=== PATIENT | male | born 1995 | race Two or more races ===

== ENCOUNTER 2017-05-10 21:58 | Emergency (ER) | payer SELFPAY ==
[~2017-05-10] VITALS: Ht 172.7 cm; Wt 59.0 kg
[2017-05-10 22:44] VITALS: BP 136/87
[2017-05-10] MEDS ORDERED: HYDROcodone/APAP 7.5/325MG 1 TAB TABLET ONE (23:04)
[2017-05-10] MEDS ORDERED: HYDR-971 PO (23:10)
--- NOTE | 2017-05-10 23:10 | PHYS DOC ---
Past Medical History Past Medical History: No Pertinent History Past Surgical History: No Surgical History Alcohol Use: None Drug Use: None Adult General Chief Complaint Chief Complaint: WRIST PAIN HPI HPI Patient is a 22 year old male presents to the emergency department stating that he had fallen 6 days ago when he was coming down the stairs after taking a shower. He's felt on a outstretched wrist. He has been taken Tylenol and ibuprofen for pain and discomfort with minimal relief. Patient does have significant swelling noted. He does have full range of motion of his fingers. Patient has 2+ peripheral pulses Refill brisk less than 2 seconds. Patient is right-hand dominant. Review of Systems Review of Systems Constitutional: Denies fever or chills [] Eyes: Denies change in visual acuity, redness, or eye pain [] HENT: Denies nasal congestion or sore throat [] Respiratory: Denies cough or shortness of breath [] Cardiovascular: No additional information not addressed in HPI [] GI: Denies abdominal pain, nausea, vomiting, bloody stools or diarrhea [] : Denies dysuria or hematuria [] Musculoskeletal: Denies back pain. Right wrist pain Integument: Denies rash or skin lesions [] Neurologic: Denies headache, focal weakness or sensory changes [] Endocrine: Denies polyuria or polydipsia [] Current Medications Current Medications Current Medications Medications (Trade) Dose Ordered Sig/Conrad Start Time Stop Time Status Last Admin Dose Admin Acetaminophen/ Hydrocodone Bitart (Lortab 5/325) 1 tab 1X ONCE 05/10/17 23:00 05/10/17 23:01 UNV Allergies Allergies Allergies Coded Allergies Type Severity Reaction Last Updated Verified No Known Drug Allergies 05/10/17 No Physical Exam Physical Exam Constitutional: Well developed, well nourished, no acute distress, non-toxic appearance. [] HENT: Normocephalic, atraumatic, bilateral external ears normal, oropharynx moist, no oral exudates, nose normal. [] Eyes: PERRLA, EOMI, conjunctiva normal, no discharge. [] Neck: Normal range of motion, no tenderness, supple, no stridor. [] Cardiovascular:Heart rate regular rhythm Lungs & Thorax: No respiratory distress noted Skin: Warm, dry, no erythema, no rash. [] Back: No tenderness Extremities: Right wrist tenderness, no cyanosis, no clubbing, ROM intact, no edema. Peripheral pulses 2+ cap refill brisk less than 2 seconds. Patient is able to move the fingers with minimal discomfort. Neurologic: Alert and oriented X 3, normal motor function, normal sensory function, no focal deficits noted. [] Psychologic: Affect normal, judgement normal, mood normal. [] Current Patient Data Vital Signs Vital Signs Date Time Temp Pulse Resp B/P (MAP) Pulse Ox O2 Delivery O2 Flow Rate FiO2 05/10/17 22:44 98.0 67 20 99 Room Air 98.0 EKG EKG [] Radiology/Procedures Radiology/Procedures [] Course & Med Decision Making Course & Med Decision Making Pertinent Labs and Imaging studies reviewed. (See chart for details) X-rays were positive for fracture per Dr. Shelley. Patient will be placed in a volar splint with recommendations to follow-up with orthopedic in the next 3-5 days. He was provided with hydrocodone here in the emergency department. Recommended take ibuprofen 800 mg every 8 hours at home is also provided with a prescription for hydrocodone at home. He was instructed this medication will cause drowsiness do not take any be alert and oriented. Instructed patient to keep the splint clean and dry elevation as much as possible. Ice packs on 20 minutes off 20 minutes several times a day. He is provided with orthopedic name and number to follow up with. Patient agrees with discharge instructions, treatment regimens and follow-up recommendations. Signs and symptoms to return back to emergency department has been provided. All questions and concerns of been answered at patient's bedside. [] Dragon Disclaimer Dragon Disclaimer This electronic medical record was generated, in whole or in part, using a voice recognition dictation system. Departure Departure Impression: Primary Impression: Wrist fracture, right Disposition: HOME, SELF-CARE Condition: STABLE Referrals: NO PCP (PCP) KATIE HAYWARD II, MD Patient Instructions: Arm Sling Use-Brief, Splint Care, [id number], Wrist Fracture, [id number] Additional Instructions: Your x-rays were positive for fracture. Ibuprofen 800 mg every 8 hours with food stop taking few develop an upset stomach. Hydrocodone will cause drowsiness do not take any be alert and oriented. He may take this medication for severe pain and discomfort. Ice packs on 20 minutes off 20 minutes several times a day. Elevation as much as possible. Keep the sling in place area Keep the splint clean and dry. Wear the sling whenever you are up ambulating. Follow-up with orthopedic within the next 3-5 days. Return back to emergency prior signs symptoms of become worse. Scripts Hydrocodone/Apap 5-325 (NORCO 5-325 TABLET) 1 Each Tablet 1 TAB PO PRN Q6HRS Y for PAIN, #20 TAB 0 Refills Prov: YSABEL VELASQUEZ APRN 05/10/17 Splinting Splinting : Location: right wrist Hand-Made Type: orthoglass Splint: volar Pre-Proc Neuro Vasc Exam: normal Post-Proc Neuro Vasc Exam: normal YSABEL VELASQUEZ APRN May 10, 2017 23:10
[2017-05-10] MEDS ORDERED: HYDROcodone/APAP 5/325MG 1 TAB TABLET PO ONE (23:15)
--- NOTE | 2017-05-11 08:10 | RAD ---
Exam: Right wrist radiograph 05/10/2017 at 2251 hours Indication: Trauma to wrist Comparison: None available Technique: 3 views of the right wrist are provided. Findings: Comminuted fracture of the distal radius with intra-articular extension to the radiocarpal joint. There is minimal apex volar angulation. There is overriding of fracture fragments. There is associated soft tissue swelling. Bone mineralization is within normal limits. Distal ulna is intact. Impression: Comminuted fracture of the distal radius with intra-articular extension of the radiocarpal joint with mild angulation and overriding of fracture fragments.
== END 2017-05-10 23:31 | disposition home or self-care (01) ==
LOC: ER 21:58
DX: S62.101A Fracture of unspecified carpal bone, right wrist, initial encounter for closed fracture (principal); W10.8XXA Fall (on) (from) other stairs and steps, initial encounter; Y93.89 Activity, other specified; Y99.8 Other external cause status; Y92.89 Other specified places as the place of occurrence of the external cause
CPT/HCPCS: 29125; 73110; 99284-25